=== PATIENT | female | born 1990 | race Caucasian/White ===

== ENCOUNTER 2021-12-04 11:01 | Emergency (ER) | payer OTHER ==
[~2021-12-04] VITALS: Ht 157.5 cm
--- OUTSIDE RECORDS SUMMARY | 2021-12-04 12:02 | XMS ---
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 E.D. VISIT COUNT (12 MO.) 2 Jack Neil- Kurt 5 [facility] 1 Genia Fonseca 1 [facility] NOTE: Visits indicate total known visits. ED/C VISIT TRACKING (12 MO.) 12/04/2021 11:02 [facility] TYPE: Emergency COMPLAINT: - VOMITING 12/03/2021 17:05 [facility] TYPE: Emergency DIAGNOSES: - Requesting Recruiter Coordinator for Resources - Medical Problem (Minor) 11/13/2021 07:10 [facility] TYPE: Emergency DIAGNOSES: - Procedure and treatment not carried out due to patient leaving prior to being seen by health care provider - Recruiter Coordinator - mayi. complaints 10/15/2021 22:37 Jack Neil- Kurt [facility]ANN[facility] TYPE: Emergency DIAGNOSES: - Abscess of vulva - female problem - Abscess 08/01/2021 12:19 [facility] TYPE: Emergency COMPLAINT: - DIZZINESS AND GIDDINESS DIAGNOSES: 0. Dizziness and giddiness 0. Other abnormal glucose 0. DIZZINESS 1. Anemia, unspecified 07/25/2021 20:47 [facility] TYPE: Emergency COMPLAINT: - MENTAL DISORDER, NOT OTHERWISE SPECIFIED DIAGNOSES: 0. PSYCH 0. Mental disorder, not otherwise specified 1. Bipolar disorder, current episode manic severe with psychotic features 2. Auditory hallucinations 2. Other underimmunization status 2. Contact with and (suspected) exposure to COVID-19 2. Unvaccinated for COVID-19 06/29/2021 00:19 [facility] TYPE: Emergency DIAGNOSES: 1. Right lower quadrant pain 1. Unspecified ovarian cyst, right side 2. Generalized abdominal pain 2. Nausea 3. Nicotine dependence, cigarettes, uncomplicated 4. Acquired absence of other specified parts of digestive tract 5. Bariatric surgery status 6. Family history of other endocrine, nutritional and metabolic diseases 7. Allergy status to other antibiotic agents 8. Allergy status to other drugs, medicaments and biological substances 9. Allergy status to penicillin 10. Allergy status to narcotic agent 11. Allergy status to sulfonamides 12. Latex allergy status - Unspecified ovarian cyst, right side - Generalized abdominal pain - abdominal pain 01/09/2021 08:13 [facility] TYPE: Emergency DIAGNOSES: 1. Other postprocedural complications and disorders of digestive system 1. Upper abdominal pain, unspecified 2. Ileus, unspecified 3. Other specified postprocedural states 4. Bipolar disorder, unspecified 5. Fibromyalgia 6. Irritable bowel syndrome without diarrhea 7. Personal history of malignant neoplasm of ovary 8. Post-traumatic stress disorder, unspecified 9. Acquired absence of other specified parts of digestive tract 10. Bariatric surgery status 11. Nicotine dependence, cigarettes, uncomplicated 12. Allergy status to other drugs, medicaments and biological substances 13. Allergy status to other antibiotic agents 14. Allergy status to penicillin 15. Allergy status to narcotic agent 16. Allergy status to sulfonamides 17. Other nonmedicinal substance allergy status 18. Latex allergy status 19. Other surgical procedures as the cause of abnormal reaction of the patient, or of later complication, without mention of misadventure at the time of the procedure - Upper abdominal pain, unspecified - abdominal pain - Other postprocedural complications and disorders of digestive system - Ileus, unspecified 01/07/2021 05:[address] [facility] TYPE: Emergency DIAGNOSES: 1. Unspecified abdominal pain 1. Unspecified intestinal obstruction, unspecified as to partial versus complete obstruction 2. Bariatric surgery status 2. Vomiting, unspecified 3. Fibromyalgia 4. Acquired absence of other specified parts of digestive tract 5. Allergy status to narcotic agent 6. Allergy status to penicillin 7. Allergy status to other drugs, medicaments and biological substances 8. Allergy status to other antibiotic agents 9. Latex allergy status 10. Allergy status to sulfonamides - sbo - Unspecified intestinal obstruction, unspecified as to partial versus complete obstruction 01/06/2021 23:35 Genia Ford [facility] TYPE: Emergency DIAGNOSES: 1. Unspecified abdominal pain 1. Unspecified intestinal obstruction, unspecified as to partial versus complete obstruction 2. Bariatric surgery status 2. Other malaise 3. Nausea with vomiting, unspecified 3. Fibromyalgia 4. Nicotine dependence, cigarettes, uncomplicated 5. Contact with and (suspected) exposure to covid-19 6. Allergy status to other antibiotic agents 7. Latex allergy status 8. Allergy status to narcotic agent 9. Allergy status to penicillin 10. Allergy status to sulfonamides 11. Allergy status to other drugs, medicaments and biological substances 12. Other allergy status, other than to drugs and biological substances - Unspecified intestinal obstruction, unspecified as to partial versus complete obstruction - abd pain, vomiting 01/06/2021 19:35 [facility] TYPE: Emergency DIAGNOSES: 1. Procedure and treatment not carried out due to patient leaving prior to being seen by health care provider 1. Procedure and treatment not carried out due to patient leaving prior to being seen by health care provider - HIATAL HERNIA 12/26/2020 23:16 [facility] TYPE: Emergency COMPLAINT: - BLOOD DRAW DIAGNOSES: 1. Weakness 1. Anemia, unspecified 2. Headache, unspecified 2. Weakness 3. Fibromyalgia 3. Dizziness and giddiness 4. Nicotine dependence, cigarettes, uncomplicated 5. Allergy status to other antibiotic agents 6. Latex allergy status 7. Allergy status to narcotic agent 8. Allergy status to penicillin 9. Allergy status to sulfonamides 10. Allergy status to other drugs, medicaments and biological substances 11. Other allergy status, other than to drugs and biological substances - thinks iron is low - Anemia, unspecified - Weakness INPATIENT VISIT TRACKING (12 MO.) 01/07/2021 17:09 [facility] TYPE: Surgery COMPLAINT: - UNKNOWN DIAGNOSES: - Unspecified intestinal obstruction, unspecified as to partial versus complete obstruction 01/07/2021 16:02 [facility] TYPE: Surgery COMPLAINT: - UNKNOWN DIAGNOSES: - Unspecified intestinal obstruction, unspecified as to partial versus complete obstruction [email or web address]
== END 2021-12-04 17:09 | disposition home or self-care (01) ==
LOC: ED 11:01
DX: E16.2 Hypoglycemia, unspecified (principal); R11.10 Vomiting, unspecified; Z88.1 Allergy status to other antibiotic agents; Z91.040 Latex allergy status; Z88.0 Allergy status to penicillin; Z59.00 Homelessness unspecified; Z20.822 Contact with and (suspected) exposure to COVID-19
CPT/HCPCS: 36415; 80053; 81001; 82150; 84439; 84443; 84703; 85025; 96374; 99284-25; C9803; G0480; J2405; J7030; U0003